=== PATIENT | female | born 1970 ===

== ENCOUNTER 2016-06-11 22:57 | Emergency (ER) | payer OTHER ==
[~2016-06-11 22:57] MED LIST: TOPROL XL50 MG PO
--- NOTE | 2016-06-12 00:40 | ED ORDER SUMMARY ---
..... Patient: ANSHUL AQUINO OrderSheet [facility] VisitID: [id number] [place] [address] 45y, F Registration Date/Time: 06/11/2016 ORDER SHEET Weight: 65.7 kg (stated) Allergies: Benadryl, Hydrocodone, Phenergan GENERAL ORDERS: MEDICATION ORDERS: Toradol IM 60 mg (NOW) (23:32 06/11/2016 Luís Chopra) (Ack 23:33 DDavis R.N.) (23:40 DDavis R.N.) Cyclobenzaprine PO 10 mg (NOW) (23:32 06/11/2016 Luís Chopra) (Ack 23:33 DDavis R.N.) (23:40 DDavis R.N.) Percocet PO 5/325 mg (HIGH ALERT MEDICATION, NOW) (00:03 06/12/2016 Luís Chopra) (Ack 0:05 DDavis R.N.) (0:07 DDavis R.N.) IV FLUIDS: ORDER SHEET NOTES: [Electronically signed by Star Nair R.N. (00:53 06/12/2016)] [Electronically signed by German Simpson Dr. (00:55 06/12/2016)] [Electronically locked/signed by Star Nair R.N. (00:53 06/12/2016)]
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
--- NOTE | 2016-06-12 00:40 | ED ORDER SUMMARY ---
..... Patient: ANSHUL AQUINO OrderSheet [facility] VisitID: [id number] [place] [address] 45y, F Registration Date/Time: 06/11/2016 ORDER SHEET Weight: 65.7 kg (stated) Allergies: Benadryl, Hydrocodone, Phenergan GENERAL ORDERS: MEDICATION ORDERS: Toradol IM 60 mg (NOW) (23:32 06/11/2016 Luís Chopra) (Ack 23:33 DDavis R.N.) (23:40 DDavis R.N.) Cyclobenzaprine PO 10 mg (NOW) (23:32 06/11/2016 Luís Chopra) (Ack 23:33 DDavis R.N.) (23:40 DDavis R.N.) Percocet PO 5/325 mg (HIGH ALERT MEDICATION, NOW) (00:03 06/12/2016 Luís Chopra) (Ack 0:05 DDavis R.N.) (0:07 DDavis R.N.) IV FLUIDS: ORDER SHEET NOTES: [Electronically signed by Star Nair R.N. (00:53 06/12/2016)] [Electronically signed by German Simpson Dr. (00:55 06/12/2016)] [Electronically locked/signed by Star Nair R.N. (00:53 06/12/2016)]
--- NOTE | 2016-06-12 00:40 | ED NURSING NOTES ---
Clinical Report - Nurses [facility] [address] [place] [address] 06/11/2016 22:59 Patient: ANSHUL AQUINO TRIAGE Triage time 23:09. Acuity: LEVEL 4. Chief Complaint: BACK PAIN. Alert. ROSANNA COMA SCORE: [place] Coma Scale: 15- eyes open spontaneously (4); best verbal response- oriented x 4 (5); best motor response- obeys commands (6). --23:14 Star Nair R.N. 23:09 06/11/16. BP: 136/87 taken on the left arm, while sitting. HR: 97. RR: 16 (regular and unlabored). O2 saturation: 99% on room air. Temp: 98.8 F. Pain level now: 10/02. --23:14 Star Nair R.N. Weight: 65.7 kg stated. Height/Length: 62 inches Per Patient. BMI: 26.5. --23:10 Star Nair R.N. Medications None. --23:10 Star Nair R.N. Allergies Benadryl. Hydrocodone. Phenergan. --23:10 Star Nair R.N. History Arrived by private vehicle, and accompanied by family. This started today. ( pt states that she woke up this morning with lower back pain radiating to her mid back, increases with palpation and movement). No history of recent trauma. SOCIAL HX: Heavy tobacco smoker- less than 1 pack per day. Occasional alcohol use. No drug use. SELF HARM ASSESSMENT: A self harm assessment was performed. The patient answered "no" to the question "Are you here because you tried to hurt yourself?". FALL RISK ASSESSMENT: Fall risk assessment completed. No fall risk identified. NUTRITIONAL RISK ASSESSMENT: The nutritional risk assessment revealed no deficiencies. FUNCTIONAL ASSESSMENT: Functional assessment: no impairments noted. LEARNING NEEDS ASSESSMENT: The learning needs assessment revealed no barriers. SKIN INTEGRITY ASSESSMENT: Skin integrity risk assessment completed. No skin integrity risk identified. --23:14 Star Nair R.N. PROBLEMS: Dental Pain. Back Pain. Chest Wall Pain. Sprain. Tension-Type Headache. Anxiety Reaction. URI. --23:10 Star Nair R.N. Pelvic Inflammatory Disease [RuleOut]. --23:10 Star Nair R.N. ADDITIONAL SURGERIES: Tubal Ligation. --23:10 Star Nair R.N. Interventions ID band on patient. To treatment room. --23:14 Star Nair R.N. PHYSICAL ASSESSMENT Ambulatory to room. ( Patient has back tenderness, no external abnormalities observed over the area of complaint.). GENERAL / NEURO / PSYCH: Alert. Oriented X 4. RESPIRATORY: Respirations not labored. CVS: Capillary refill less than 2 seconds. GI / : Abdomen soft and nontender. EXTREMITIES: Sensation intact in extremities. BACK: Limited ROM of the back. Soft tissue tenderness. --23:15 Star Nair R.N. NURSING PROGRESS NOTES Two patient identifiers checked. Call light placed in reach. Side rails up x 1. Bed placed in lowest position. Brakes of bed on. Patient ready for evaluation- chart flagged. ( Dr. Porter present with the patient currently.). --23:16 Star Nair R.N. 23:36 06/11/2016 Cyclobenzaprine PO Tablets 10 mg given. Allergies verified, confirmed 5 rights and sedative warning given to the patient. --23:40 Star Nair R.N. 23:39 06/11/2016 Toradol (Ketorolac Tromethamine) IM 60 mg given. Given in the right gluteus fadumo. Allergies verified and confirmed 5 rights. --23:40 Star Nair R.N. 00:07 06/12/2016 Percocet (Oxycodone-Acetaminophen) PO 5/325 mg Tablets 1 tab given. Allergies verified, confirmed 5 rights and sedative warning given to the patient and patient's family. --00:07 Star Nair R.N. DISPOSITION / DISCHARGE Departure time: 00:53. Condition at departure: improved and stable. No learning barriers present. Discharge instructions provided and reviewed with the patient and family. Reviewed warnings (no driving on narcotics/oxycodone). Reviewed medication(s) side effects, precautions, dosing and course information. Prescription(s) given to the patient. Treatments reviewed. Reviewed referrals for followup. Patient and family verbalized understanding. Written instructions provided in Bermudian. The patient was discharged home and accompanied by family. She left the Emergency Department ambulatory and via private vehicle. Family member driving ("daughter"). --00:53 Star Nair R.N. 00:52 06/12/16. BP: 146/92. HR: 85. RR: 20 (regular and unlabored). O2 saturation: 100% on room air. Pain level now: 07/02. --00:53 Star Nair R.N. Locked/Released at 06/12/2016 0:53 by Star Nair R.N.
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
--- NOTE | 2016-06-12 00:55 | ED MED RECONCILIATION SUMMARY ---
Patient: ANSHUL AQUINO Medication Reconciliation Report [facility] VisitID: [id number] [place] [address] 45y, F Registration Date/Time: 06/11/2016 Weight: 65.7 kg Height/Length: 62 in. BMI: 26.5 ALLERGIES: Benadryl, Hydrocodone, Phenergan The patient's Home Medications are listed below: NONE. The source(s) of the original Home Medication information: Not obtained. The following Medications were given to the patient in the Emergency Department: Toradol [IM] IM 60 mg, administered: 06/11/2016 11:39:00 PM Cyclobenzaprine [PO] PO 10 mg, administered: 06/11/2016 11:36:00 PM Percocet [PO] PO 1 tab, administered: 06/12/2016 12:07:00 AM The following Medications were prescribed to the patient: Percocet 5 mg/325 mg: take 1 tablet orally every 6 hours as needed for pain. Dispense twelve (12). No refill. Substitution is permissible. -- German Simpson Dr.
--- NOTE | 2016-06-12 00:55 | ED MAR SUMMARY ---
..... Medication Administration Record [facility] [address] [place] [address] Patient: ANSHUL AQUINO Visit ID: [id number] 45y, F Weight: 65.7 kg Height/Length: 62 in BMI: 26.5 ALLERGIES: Benadryl, Hydrocodone, Phenergan Given 23:36 06/11/2016 Star Nair R.N. Medication Administered: CYCLOBENZAPRINE [PO], Dose: 10 mg Tablets PO. Medication Ordered: Cyclobenzaprine PO 10 mg (NOW). Given 23:39 06/11/2016 Star Nair R.N. Medication Administered: TORADOL [IM] (KETOROLAC TROMETHAMINE), Dose: 60 mg IM. Medication Ordered: Toradol IM 60 mg (NOW). Given 00:07 06/12/2016 Star Nair R.N. Medication Administered: PERCOCET [PO] (OXYCODONE-ACETAMINOPHEN), Dose: 1 tab 5/325 mg Tablets PO. Medication Ordered: Percocet PO 5/325 mg (HIGH ALERT MEDICATION, NOW).
--- NOTE | 2016-06-12 00:55 | ED DISCHARGE INSTRUCTIONS ---
Patient: ANSHUL AQUINO General Instructions [facility] VisitID: [id number] [place] [address] 45y, F Registration Date/Time: 06/11/2016 06/11/2016 23:09 BP: 136/87. HR: 97. RR: 16. O2 saturation: 99%. Temp: 98.8 F. Pain level now: 8/10. Blood pressure normal. Oxygen saturation normal. Acute lumbar strain (left). INSTRUCTIONS Warnings: SEDATIVE MEDICATION: You were given sedative medication during your visit. Do not drive or operate dangerous machinery. CONTROLLED SUBSTANCE WARNINGS. Your Current Medications: CONTINUE TAKING THE FOLLOWING MEDICATIONS: None*. Prescription Medications: Percocet 5 mg/325 mg: take 1 tablet orally every 6 hours as needed for pain. Dispense twelve (12). No refill. Substitution is permissible. Follow-up: Return to the emergency department as needed. Follow up with your doctor in three days. Reason for referral: recheck today's concerns. Summary of care provided to patient via paper. Screening today revealed the patient's blood pressure to be in the normal range. The patient should follow up with a primary care provider for blood pressure management. Understanding of the discharge instructions verbalized by patient. ADDITIONAL INFORMATION Back Pain [Acute Or Chronic] Back pain is usually caused by an injury to the muscles or ligaments of the spine. Sometimes the disks that separate each bone in the spine may bulge and cause pain by pressing on a nearby nerve. Back pain may also appear after a sudden twisting/bending force (such as in a car accident), after a simple awkward movement, or lifting something heavy with poor body positioning. In either case, muscle spasm is often present and adds to the pain. Acute back pain usually gets better in one to two weeks. Back pain related to disk disease, arthritis in the spinal joints or spinal stenosis (narrowing of the spinal canal) can become chronic and last for months or years. Unless you had a physical injury (for example, a car accident or fall) X-rays are usually not ordered for the initial evaluation of back pain. If pain continues and does not respond to medical treatment, x-rays and other tests may be performed at a later time. Home Care: You may need to stay in bed the first few days. But, as soon as possible, begin sitting or walking to avoid problems with prolonged bed rest (muscle weakness, worsening back stiffness and pain, blood clots in the legs). When in bed, try to find a position of comfort. A firm mattress is best. Try lying flat on your back with pillows under your knees. You can also try lying on your side with your knees bent up towards your chest and a pillow between your knees. Avoid prolonged sitting. This puts more stress on the lower back than standing or walking. During the first two days after injury, apply an ICE PACK to the painful area for 20 minutes every 2-4 hours. This will reduce swelling and pain. HEAT (hot shower, hot bath or heating pad) works well for muscle spasm. You can start with ice, then switch to heat after two days. Some patients feel best alternating ice and heat treatments. Use the one method that feels the best to you. You may use acetaminophen (Tylenol) or ibuprofen (Motrin, Advil) to control pain, unless another pain medicine was prescribed. [NOTE: If you have chronic liver or kidney disease or ever had a stomach ulcer or GI bleeding, talk with your doctor before using these medicines.] Be aware of safe lifting methods and do not lift anything over 15 pounds until all the pain is gone. Follow Up with your doctor or this facility if your symptoms do not start to improve after one week. Physical therapy may be needed. [NOTE: If X-rays were taken, they will be reviewed by a radiologist. You will be notified of any new findings that may affect your care.] Get Prompt Medical Attention if any of the following occur: Pain becomes worse or spreads to your legs Weakness or numbness in one or both legs Loss of bowel or bladder control Numbness in the groin or genital area Oxycodone Hydrochloride, Acetaminophen Oral tablet What is this medicine? ACETAMINOPHEN; OXYCODONE (a set a BABATUNDE yakov fen; ox i KOE done) is a pain reliever. It is used to treat mild to moderate pain. How should I use this medicine? Take this medicine by mouth with a full glass of water. Follow the directions on the prescription label. Take your medicine at regular intervals. Do not take your medicine more often than directed. Talk to your dressmaker or tailor regarding the use of this medicine in children. Special care may be needed. Patients over 65 years old may have a stronger reaction and need a smaller dose. What side effects may I notice from receiving this medicine? Side effects that you should report to your doctor or health child caregiver private home as soon as possible: allergic reactions like skin rash, itching or hives, swelling of the face, lips, or tongue breathing difficulties, wheezing confusion light headedness or fainting spells severe stomach pain yellowing of the skin or the whites of the eyes Side effects that usually do not require medical attention (report to your doctor or health child caregiver private home if they continue or are bothersome): dizziness drowsiness nausea vomiting What may interact with this medicine? alcohol antihistamines barbiturates like amobarbital, butalbital, butabarbital, methohexital, pentobarbital, phenobarbital, thiopental, and secobarbital benztropine drugs for bladder problems like solifenacin, trospium, oxybutynin, tolterodine, hyoscyamine, and methscopolamine drugs for breathing problems like ipratropium and tiotropium drugs for certain stomach or intestine problems like propantheline, homatropine methylbromide, glycopyrrolate, atropine, belladonna, and dicyclomine general anesthetics like etomidate, ketamine, nitrous oxide, propofol, desflurane, enflurane, halothane, isoflurane, and sevoflurane medicines for depression, anxiety, or psychotic disturbances medicines for sleep muscle relaxants naltrexone narcotic medicines (opiates) for pain phenothiazines like perphenazine, thioridazine, chlorpromazine, mesoridazine, fluphenazine, prochlorperazine, promazine, and trifluoperazine scopolamine tramadol trihexyphenidyl What if I miss a dose? If you miss a dose, take it as soon as you can. If it is almost time for your next dose, take only that dose. Do not take double or extra doses. Where should I keep my medicine? Keep out of the reach of children. This medicine can be abused. Keep your medicine in a safe place to protect it from theft. Do not share this medicine with anyone. Selling or giving away this medicine is dangerous and against the law. Store at room temperature between 20 and 25 degrees C (68 and 77 degrees F). Keep container tightly closed. Protect from light. This medicine may cause accidental overdose and if it is taken by other adults, children, or pets. Flush any unused medicine down the toilet to reduce the chance of harm. Do not use the medicine after the expiration date. What should I tell my health care provider before I take this medicine? They need to know if you have any of these conditions: brain tumor Crohn's disease, inflammatory bowel disease, or ulcerative colitis drink more than 3 alcohol containing drinks per day drug abuse or addiction head injury heart or circulation problems kidney disease or problems going to the bathroom liver disease lung disease, asthma, or breathing problems an unusual or allergic reaction to acetaminophen, oxycodone, other opioid analgesics, other medicines, foods, dyes, or preservatives or trying to get breast-feeding What should I watch for while using this medicine? Tell your doctor or health child caregiver private home if your pain does not go away, if it gets worse, or if you have new or a different type of pain. You may develop tolerance to the medicine. Tolerance means that you will need a higher dose of the medication for pain relief. Tolerance is normal and is expected if you take this medicine for a long time. Do not suddenly stop taking your medicine because you may develop a severe reaction. Your body becomes used to the medicine. This does NOT mean you are addicted. Addiction is a behavior related to getting and using a drug for a non-medical reason. If you have pain, you have a medical reason to take pain medicine. Your doctor will tell you how much medicine to take. If your doctor wants you to stop the medicine, the dose will be slowly lowered over time to avoid any side effects. You may get drowsy or dizzy. Do not drive, use machinery, or do anything that needs mental alertness until you know how this medicine affects you. Do not stand or sit up quickly, especially if you are an older patient. This reduces the risk of dizzy or fainting spells. Alcohol may interfere with the effect of this medicine. Avoid alcoholic drinks. There are different types of narcotic medicines (opiates) for pain. If you take more than one type at the same time, you may have more side effects. Give your health care provider a list of all medicines you use. Your doctor will tell you how much medicine to take. Do not take more medicine than directed. Call emergency for help if you have problems breathing. The medicine will cause constipation. Try to have a bowel movement at least every 2 to 3 days. If you do not have a bowel movement for 3 days, call your doctor or health child caregiver private home. Do not take Tylenol (acetaminophen) or medicines that have acetaminophen with this medicine. Too much acetaminophen can be very dangerous. Many nonprescription medicines contain acetaminophen. Always read the labels carefully to avoid taking more acetaminophen. You have been given the following additional information: Back Pain (Acute Or Chronic) Oxycodone Hydrochloride, Acetaminophen Oral tablet (Electronically signed by German Simpson Dr. 06/12/2016 0:55)
--- NOTE | 2016-06-12 00:55 | ED MED RECONCILIATION SUMMARY ---
Patient: ANSHUL AQUINO Medication Reconciliation Report [facility] VisitID: [id number] [place] [address] 45y, F Registration Date/Time: 06/11/2016 Weight: 65.7 kg Height/Length: 62 in. BMI: 26.5 ALLERGIES: Benadryl, Hydrocodone, Phenergan The patient's Home Medications are listed below: NONE. The source(s) of the original Home Medication information: Not obtained. The following Medications were given to the patient in the Emergency Department: Toradol [IM] IM 60 mg, administered: 06/11/2016 11:39:00 PM Cyclobenzaprine [PO] PO 10 mg, administered: 06/11/2016 11:36:00 PM Percocet [PO] PO 1 tab, administered: 06/12/2016 12:07:00 AM The following Medications were prescribed to the patient: Percocet 5 mg/325 mg: take 1 tablet orally every 6 hours as needed for pain. Dispense twelve (12). No refill. Substitution is permissible. -- German Simpson Dr.
--- NOTE | 2016-06-12 00:55 | ED MAR SUMMARY ---
..... Medication Administration Record [facility] [address] [place] [address] Patient: ANSHUL AQUINO Visit ID: [id number] 45y, F Weight: 65.7 kg Height/Length: 62 in BMI: 26.5 ALLERGIES: Benadryl, Hydrocodone, Phenergan Given 23:36 06/11/2016 Star Nair R.N. Medication Administered: CYCLOBENZAPRINE [PO], Dose: 10 mg Tablets PO. Medication Ordered: Cyclobenzaprine PO 10 mg (NOW). Given 23:39 06/11/2016 Star Nair R.N. Medication Administered: TORADOL [IM] (KETOROLAC TROMETHAMINE), Dose: 60 mg IM. Medication Ordered: Toradol IM 60 mg (NOW). Given 00:07 06/12/2016 Star Nair R.N. Medication Administered: PERCOCET [PO] (OXYCODONE-ACETAMINOPHEN), Dose: 1 tab 5/325 mg Tablets PO. Medication Ordered: Percocet PO 5/325 mg (HIGH ALERT MEDICATION, NOW).
== END 2016-06-12 00:55 | disposition home or self-care (01) ==
LOC: ED SRH 22:57
DX: S39.012A Strain of muscle, fascia and tendon of lower back, initial encounter (principal); X58.XXXA Exposure to other specified factors, initial encounter; Y93.9 Activity, unspecified; Y92.9 Unspecified place or not applicable; Y99.9 Unspecified external cause status; F17.210 Nicotine dependence, cigarettes, uncomplicated; Z88.5 Allergy status to narcotic agent; Z88.8 Allergy status to other drugs, medicaments and biological substances